=== PATIENT | male | born 1955 | race Caucasian/White ===

== ENCOUNTER 2016-05-27 14:10 | Observation (INO) | payer BC ==
--- NOTE | ~2016-05-27 | HP ---
History And Physical [place] [id number] [facility] [place]. [address] NAME: FUNMI MIRANDA JR : 51 STATUS : ADM IN [facility]#: [id number] AGE: 60 ADM/REG DATE : 05/27/16 MR#: [id number] REPORT SERV DATE: 05/27/16 DICTATED BY: JOSE MANUEL ALMAGUER DATE: 05/27/16 REPORT STATUS : Draft TRANSCRIBED BY: HALI DATE: 05/27/16 DATE OF ADMISSION: 05/27/2016 CHIEF COMPLAINT: Syncope with flu positive. HISTORY OF PRESENT ILLNESS: The patient is a 60-year-old male with past medical history of hypertension and hyperlipidemia, who over the last 24 hours has noted that he has increased chills, deep pain, and cough that has been unrelenting. The patient also reported that he had a coworker with similar symptoms. Did have chills and the patient began becoming so weak as he did not have any p.o. intake over the last 24 to 48 hours that he actually passed out, fell, had a small abrasion on his right knee and on his right upper eyebrow. After this episode, reports that when he had similar near syncope episode that he needed to come to emergency room for workup. The patient reports that symptoms occurred for about five to seven minutes when he was intermittent with moderate severity. Denied any chest pain or pressure. No radiating symptoms. Did have occasional chills and shortness of breath with cough. No diarrhea. Decreased p.o. intake. No dizziness or palpitations. There are no worsening or relieving symptoms. Symptoms are currently resolved and feels back to his normal. The patient, on screening, was noted to be flu positive. ADDITIONAL REVIEW OF SYSTEMS: GENERAL: Did have mild chills. No weakness. EYES: No eye pain or visual changes. ENT: No ear pain, but does have congestion. NEURO: No headache. Did have mild abrasion at the right side after fall. Did have syncope- type episode. SKIN: Bruising with abrasions. RESPIRATORY: No shortness of breath, but did have cough. CV: No chest pain or palpitations, but did have slightly irregular rhythm on arrival. GI: No nausea, vomiting, or abdominal pain. : No dysuria or hematuria. MUSCULOSKELETAL: Does have deep myalgias and arthralgias with recent flu. ENDO: No fatigue or polyuria. HEME: No bleeding or bruising. IMMUNOLOGIC: No rhinorrhea. PSYCH: No anxiety or confusion. PAST MEDICAL HISTORY: Hypertension and hyperlipidemia. Has had stress test approximately one to two years ago at [facility] that was reported clear. SURGERIES: Had left big toe surgery for arthritis symptoms. FAMILY HISTORY: Of stroke in mother and father. Mother had hypertensive-type stroke and father had embolic-type stroke. SOCIAL HISTORY: . No smoking, alcohol, or illicits. 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 History And Physical [address] [place]. [address] NAME: FUNMI MIRANDA : 51 STATUS : ADM IN [facility]#: [id number] AGE: 60 ADM/REG DATE : 05/27/16 MR#: [id number] REPORT SERV DATE: 05/27/16 DICTATED BY: JOSE MANUEL ALMAUGER DATE: 05/27/16 REPORT STATUS : Draft TRANSCRIBED BY: HALI DATE: 05/27/16 ALLERGIES: NO KNOWN DRUG ALLERGIES. HOME MEDICATIONS: Tylenol, artificial tears, Zyrtec, Nexium, Prinivil, multivitamins, Zocor, Nasacort. EKG: Normal sinus rhythm with frequent PVCs, rate 81, QTc 450. PHYSICAL EXAMINATION: VITAL SIGNS: The patient's blood pressure 115/40, temperature 98.4, pulse 82, respirations 18, O2 saturations 100% on room air. GENERAL: No acute distress. Well developed, well nourished. EYES: No scleral icterus. EOMI. ENT: Nares patent. Tongue midline. Moist mucous membranes with facial flushing. CV: Regular rate with frequent PVCs. No rubs or gallops. No murmurs. GI: Soft, nontender, nondistended. Bowel sounds positive. : Deferred. MUSCULOSKELETAL: Does have abrasion on right knee after fall on plastic pail, but does have good range of motion. No signs of cellulitis or swelling. SKIN: Abrasion at right knee as described and forehead, otherwise warm and dry. No tenting. LYMPH: No cervical or supraclavicular lymphadenopathy. NEURO: Alert and oriented. Moves all extremities x4. Has symmetrical strength upper and lower extremities. PSYCH: Appropriate mood and affect. LABORATORY DATA: Brain without contrast, negative noncontrast CT brain. CMP; sodium 141, potassium 4.3, chloride 107, bicarb 23, BUN and creatinine 16 and 1.37, glucose 93. LFTs within normal limits. Troponin negative. T bilirubin 0.8. Flu screen positive for flu A. Lactate 2.3. Urinalysis, 30 protein, but negative leukocyte esterase and nitrites. CBC; WBC count 10, H and H 14.6 and 42.7, MCV 95.5, platelets 193. Portable chest, no acute cardiopulmonary findings grossly. ASSESSMENT AND PLAN: 1. Flu positive. 2. Syncope. 3. Bigeminy. 4. Hypertension. 5. Hyperlipidemia. PLAN: 1. Flu positive. Symptoms occurred within the last 48 hours with aching chills. Also has positive contacts at work. Start on Tamiflu. Supportive treatment. IV fluids. 2. Syncope. Has had one true episode and presyncope-type episode likely secondary to flu symptoms, but did have bigeminy pattern and now currently frequent PVCs. We will check echocardiogram due to family history of also having embolic episodes. The patient has had cardiac workup in the past. CT negative currently. Treat underlying flu. Monitor vitals and continue to monitor on EKG for any dysrhythmias. May require outpatient History And Physical [address] [address] NAME: FUNMI MIRANDA JR : 51 STATUS : ADM IN [facility]#: [id number] AGE: 60 ADM/REG DATE : 05/27/16 MR#: [id number] REPORT SERV DATE: 05/27/16 DICTATED BY: JOSE MANUEL ALMAGUER DATE: 05/27/16 REPORT STATUS : Draft TRANSCRIBED BY: HALI DATE: 05/27/16 Holter. The patient's has previously required this also. 3. Bigeminy with frequent PVCs. Optimize electrolytes. Has had history of stress test that was negative. Treat underlying flu with O2 demand. Bigeminy has resolved and has gone to frequent PVC with decreased intermittence after getting IV fluids. 4. Hypertension. Lisinopril. 5. Hyperlipidemia. Statin. All questions answered with the patient. Disposition pending. Monitoring of telemetry. Overnight cardiac and echocardiogram. Repeat EKG in a.m. DDN/MODL Jose Manuel Almaguer MD / [id number] CC: Jarrett Claros Jr, MD Lester J. Brodie, MD
--- NOTE | ~2016-05-27 | DS ---
Discharge Summary [facility] [address] [place]. [address] NAME: FUNMI MIRANDA JR : 51 STATUS : DIS [place] PAT#: [id number] AGE: 60 ADM/REG DATE : 05/27/16 MR#: [id number] REPORT SERV DATE: 05/29/16 DICTATED BY: JR. CLAROS WILLIAM JOHN DATE: 05/28/16 REPORT STATUS : Draft TRANSCRIBED BY: MODElsa DATE: 05/28/16 ADMISSION DATE: 05/27/2016 DISCHARGE DATE: 05/28/2016 DISCHARGE DIAGNOSES: Include: 1. Influenza. 2. Syncope, likely secondary to influenza. 3. Bigeminy without events while on floor. 4. Hypertension. 5. Hyperlipidemia. OPERATIONS/PROCEDURES AND TREATMENTS: Include: 1. Transthoracic echocardiogram done 05/2016, which showed normal left ventricular systolic function with an ejection fraction of 50% to 55%, mild diastolic dysfunction. The right ventricle is not well seen, but likely was normal in size and function. No significant valvular regurgitation or stenosis. 2. CT of the brain done 05/27/2016, which was unremarkable. 3. Chest x-ray done 05/27/2016, which was normal. 4. Chest x-ray done 05/28/2016 was normal. 5. Influenza swab positive. DISCHARGE MEDICATIONS: Include: 1. Lisinopril 10 mg orally daily. 2. Zyrtec 10 mg orally daily. 3. Multivitamin one tablet orally daily. 4. Tamiflu 75 mg orally twice a day for five days. 5. Nexium 40 mg orally daily. 6. Simvastatin 40 mg orally daily. 7. Nasacort one spray daily. HOSPITAL COURSE: The patient is a 60-year-old white male with past medical history of hypertension and hyperlipidemia, who presented to the emergency room with complaint of chills, cough, and chest pain with cough, apparently had become quite weak with poor p.o. intake over the past 24-48 hours, got up to go to the bathroom and had a brief syncopal episode witnessed. The patient's exam in the emergency room was significant for a temperature 98.4, blood pressure 115/40, heart rate 82, respiratory rate of 18. Neuro exam was unremarkable. Chest x-ray showed no evidence of infiltrate. Flu swab was positive for influenza A. BUN and creatinine were 16 and 1.4. Telemetry showed events of bigeminy. The patient is admitted to the Clinical Decision Unit for monitoring. He was started on Tamiflu and IV fluids. Maintained on telemetry. There were no significant events, including no events of bigeminy after the patient arrived in the Clinical Decision Unit. He was observed through the day, was ambulating without difficulty and felt stable for discharge home. Consideration for Holter monitor was discussed with the patient. We felt that since there were no events at all since admission, it was reasonable to defer at this time. The patient agrees. An echocardiogram was performed and showed only mild diastolic Discharge Summary [address] [address] NAME: RUTH,MELVIN MINI LEONARD : 51 STATUS : DIS [place] PAT#: [id number] AGE: 60 ADM/REG DATE : 05/27/16 MR#: [id number] REPORT SERV DATE: 05/29/16 DICTATED BY: JR. CLAROS WILLIAM JOHN DATE: 05/28/16 REPORT STATUS : Draft TRANSCRIBED BY: HALI DATE: 05/28/16 dysfunction. The patient will be discharged home today, 05/28/2016 in good condition. We will follow up with primary care physician, Dr. Eldon Stubbs in two to four weeks at [facility]. DISCHARGE DIET: Regular. ACTIVITY: As tolerated. FOLLOWUP ISSUES: If any further palpitations or cardiac arrhythmias, may consider a Holter monitor. WMadhaviF/HALI Jarrett Claros Jr, MD / [id number] CC: Jarrett Claros Jr, MD
[~2016-05-27 14:10] MED LIST: ASA5GR PO; CLARIT10 PO; CO Q-10400 MG OR; GLUCCHONDR PO; LORCET PO; MULTIPLE VIT PO; NASONEX NAS; PRIN10 PO; ZOCOR20 PO; [UNRECOGNIZED DRUG - OTHER] OR
[2016-05-27] MEDS ORDERED: ZOCOR40 PO (14:57)
[2016-05-27] MEDS ORDERED: PRIN10 PO (14:57)
[2016-05-27] MEDS ORDERED: ACET500CAP PO (14:58)
[2016-05-27] MEDS ORDERED: NASACORTAQ NAS (14:58)
[2016-05-27] MEDS ORDERED: ZYRTEC ALLGY10 MG PO (14:58)
[2016-05-27] MEDS ORDERED: NEXIUM40 PO (14:58)
[2016-05-27] MEDS ORDERED: THERGRANM PO (14:58)
[2016-05-27] MEDS ORDERED: TEARS PLUS OPH (14:59)
[2016-05-27 15:49] LABS: WBC (NOT ORDERED) (RFLEX) 0 (0-5)
[2016-05-27 15:55] LABS: BASOPHILS 0.2 %; BASOPHILS ABSOLUTE 0.02 10/3/uL (0.0-0.16); EOSINOPHILS 0.2 %; EOSINOPHILS ABSOLUTE 0.02 10/3/uL (0.0-0.53); ER CBC TAT 0 Hrs 05 Mins; HEMATOCRIT 42.7 % (40.0-51.0); HEMOGLOBIN 14.6 g/dL (13.6-17.8); IMMATURE GRANULOCYTES 0.2 %; IMMATURE GRANULOCYTES ABSOLUTE 0.02 10/3/uL (0.0-0.11); LYMPHOCYTES 7.4 %; LYMPHOCYTES ABSOLUTE 0.74 10/3/uL (0.67-4.30); MEAN CORPUS HGB CONC 34.2 g/dL (32.0-36.0); MEAN CORPUSCULAR HEMOGLOB 32.7 pg (26.0-34.0); MONOCYTES 14.5 %; MONOCYTES ABSOLUTE 1.44 10/3/uL (0.21-1.20); NEUTROPHILS 77.5 %; NEUTROPHILS ABSOLUTE 7.71 10/3/uL (2.02-8.40); PLATELET COUNT 193 10/3/uL (150-400); RBC DISTRIBUTION WIDTH 12.1 % (12.0-16.0); RED CELL COUNT 4.47 10/6/uL (4.7-6.1)
[2016-05-27 15:56] LABS: MANUAL DIFF NO %; MEAN CORPUSCULAR VOLUME 95.5 fL (80-100)
[2016-05-27 16:02] LABS: ASCORBIC ACID (UR NOT ORDER) NEG (NEG); BILIRUBIN, URINE NEGATIVE (NEG); ER URINALYSIS TAT 0 Hrs 14 Mins; KETONE, URINE 20 MG/DL (NEG); LEUKOCYTE ESTERASE(NOT OR NEG (NEG); NITRITE (URINE) NEG (NEG)
[2016-05-27 16:10] LABS: INFLUENZA B SCREEN NEGATIVE (NEGATIVE)
[2016-05-27 16:12] LABS: INFLUENZA A SCREEN POSITIVE (NEGATIVE)
[2016-05-27 16:40] LABS: A/G RATIO 1.1 (0.7-1.9); ALKALINE PHOSPHATASE 83 U/L (45-117); BUN (BLOOD UREA NITROGEN) 16 MG/DL (6-23); CALCIUM, SERUM 8.6 MG/DL (8.5-10.4); CHLORIDE, SERUM 107 MMOL/L (96-112); CO2 (CARBON DIOXIDE) 23 MMOL/L (24-34); CREATININE 1.37 MG/DL (0.70-1.30); GFR AFRICAN AMERICAN 64 ML/MIN (>=60); GFR NON AFRICAN AMERICAN 55 ML/MIN (>=60); GLOBULIN 3.6 G/DL (2.5-4.1); GLUCOSE, SERUM 93 MG/DL (60-99); POTASSIUM, SERUM 4.3 MMOL/L (3.5-5.3); SGOT(AST) 29 U/L (5-40); SGPT(ALT) 31 U/L (5-65); SODIUM, SERUM 141 MMOL/L (135-148); TOTAL BILIRUBIN 0.8 MG/DL (0-1.2); TOTAL PROTEIN 7.6 G/DL (6.0-8.5); TROPONIN I <0.02 NG/ML (<0.05)
[2016-05-28 05:04] LABS: BASOPHILS 0.1 %; BASOPHILS ABSOLUTE 0.01 10/3/uL (0.0-0.16); EOSINOPHILS 0.1 %; EOSINOPHILS ABSOLUTE 0.01 10/3/uL (0.0-0.53); HEMOGLOBIN 13.2 g/dL (13.6-17.8); IMMATURE GRANULOCYTES 0.3 %; IMMATURE GRANULOCYTES ABSOLUTE 0.02 10/3/uL (0.0-0.11); LYMPHOCYTES 15.9 %; LYMPHOCYTES ABSOLUTE 1.23 10/3/uL (0.67-4.30); MEAN CORPUS HGB CONC 34.7 g/dL (32.0-36.0); MEAN CORPUSCULAR HEMOGLOB 33.3 pg (26.0-34.0); MEAN PLATELET VOLUME 9.8 fL (9.2-13.0); MONOCYTES 15.6 %; MONOCYTES ABSOLUTE 1.21 10/3/uL (0.21-1.20); NEUTROPHILS ABSOLUTE 5.26 10/3/uL (2.02-8.40); PLATELET COUNT 179 10/3/uL (150-400); RBC DISTRIBUTION WIDTH 12.1 % (12.0-16.0); RED CELL COUNT 3.96 10/6/uL (4.7-6.1); WHITE BLOOD CELLS 7.7 10/3/uL (4.5-10.5)
[2016-05-28 05:10] LABS: MANUAL DIFF NO %
[2016-05-28 05:16] LABS: BUN (BLOOD UREA NITROGEN) 15 MG/DL (6-23); CALCIUM, SERUM 8.1 MG/DL (8.5-10.4); CHLORIDE, SERUM 106 MMOL/L (96-112); CO2 (CARBON DIOXIDE) 24 MMOL/L (24-34); CREATININE 1.14 MG/DL (0.70-1.30); GFR AFRICAN AMERICAN 79 ML/MIN (>=60); GFR NON AFRICAN AMERICAN 69 ML/MIN (>=60); GLUCOSE, SERUM 92 MG/DL (60-99); SODIUM, SERUM 141 MMOL/L (135-148); TROPONIN I <0.02 NG/ML (<0.05)
[2016-05-28] MEDS ORDERED: TAMIFLU PO (18:55)
== END 2016-05-28 19:21 | disposition home or self-care (01) ==
LOC: ER 14:10 → CDU1 19:44 → CDU2 19:51
PROVIDERS: Emergency Medicine; Student in an Organized Health Care Education/Training Program
DX: J11.1 Influenza due to unidentified influenza virus with other respiratory manifestations (principal); R55 Syncope and collapse; I10 Essential (primary) hypertension; R00.8 Other abnormalities of heart beat; E78.5 Hyperlipidemia, unspecified; Z98.890 Other specified postprocedural states; Z79.899 Other long term (current) drug therapy
CPT/HCPCS: 70450; 71010; 80048; 80053; 81001; 83605; 83735; 84484; 85025; 87040; 87804; 93005; 96372; 99285; A9270-GY; C8929; G0378; Q9957